=== PATIENT | female | born 1985 | race Two or more races ===

== ENCOUNTER 2019-09-15 05:22 | Inpatient (IN) | payer BC ==
[~2019-09-15] VITALS: Ht 162.6 cm; Wt 81.2 kg
[2019-09-15 05:30] VITALS: BP 135/89
--- NOTE | 2019-09-15 05:30 | NUR ---
ED Nurse Note: Patient brought in by RA from home c/o respiratory distress. Has medical hx of MS. Stated that her medication dose was increased and is causing her SOB. 99% RA, not in any distress. VSS. Friend at bedside.
[2019-09-15] MEDS ORDERED: Morphine Sulfate 4mg/ml Inj (IV USE ONLY) IVP ONE (05:45)
[2019-09-15] MEDS ORDERED: methylPREDNISolone Sod Succ 1,000 MG in NS 275 ML IVPB ONE (05:45)
--- NOTE | 2019-09-15 05:45 | NUR ---
ED Nurse Note: ERMD at bedside.
--- NOTE | 2019-09-15 05:55 | NUR ---
ED Nurse Note: IV line established. Blood specimen collected and sent to lab.
--- NOTE | 2019-09-15 05:57 | NUR ---
ED Nurse Note: Solumedrol 1000mg in NS 275ml was not given yet. Medication not available in the pyxis. aware and acknowledged.
[2019-09-15] MEDS ORDERED: Solu-MEDROL 125mg Inj IVP ONE (06:15)
--- NOTE | 2019-09-15 06:19 | Emergency Room Report ---
History of Present Illness General Chief Complaint: Upper Respiratory Illness Source: Patient Present Illness HPI 34-year-old female presents ED for evaluation. Brought in by EMS from home. States she felt short of breath momentarily tonight. States that she has history of MS. Was recently diagnosed with trigeminal neuralgia. Was initially placed on oxcarbazepine on Friday but then because she continued to have pain her dose was doubled yesterday. Was told that she could develop shortness of breath with the increased dosages. Denies any shortness of breath at this time. States she feels tingling sensation in her left arm and left leg. Typical of her MS flare. Pain is dull, 8 out of 10, nonradiating. No other aggravating relieving factors. Denies any other associated symptoms Allergies: Uncoded Allergies: NSAIDS (Allergy, Unknown, 09/15/19) Patient History Past Medical History: other - MS Past Surgical History: none Pertinent Family History: none Social History: Denies: smoking, alcohol use, drug use Now: No Immunizations: UTD Reviewed Nursing Documentation: PMH: Agreed; PSxH: Agreed Review of Systems All Other Systems: negative except mentioned in HPI Physical Exam Vital Signs Date Time Temp Pulse Resp B/P (MAP) Pulse Ox O2 Delivery O2 Flow Rate FiO2 09/15/19 05:22 98.2 70 20 135/89 (104) 97 Room Air Sp02 EP Interpretation: reviewed, normal General Appearance: no apparent distress, alert, GCS 15, non-toxic Head: normocephalic, atraumatic Eyes: bilateral eye normal inspection, bilateral eye PERRL ENT: hearing grossly normal, normal pharynx, no angioedema, normal voice Neck: full range of motion, supple/symm/no masses Respiratory: chest non-tender, lungs clear, normal breath sounds, speaking full sentences Cardiovascular #1: regular rate, rhythm, no edema Cardiovascular #2: 2+ carotid (R), 2+ carotid (L), 2+ radial (R), 2+ radial (L) , 2+ dorsalis pedis (R), 2+ dorsalis pedis (L) Gastrointestinal: normal bowel sounds, non tender, soft, non-distended, no guarding, no rebound Rectal: deferred Genitourinary: normal inspection, no CVA tenderness Musculoskeletal: back normal, normal range of motion, gait/station normal, non- tender Neurologic: alert, motor strength/tone normal, oriented x3, sensory intact, responsive, speech normal Psychiatric: judgement/insight normal, memory normal, mood/affect normal, no suicidal/homicidal ideation Reflexes: 3+ bicep (R), 3+ bicep (L), 3+ tricep (R), 3+ tricep (L), 3+ knee (R) , 3+ knee (L) Lymphatic: no adenopathy Medical Decision Making Diagnostic Impression: Primary Impression: Multiple sclerosis exacerbation Additional Impression: Dyspnea Qualified Codes: R06.00 - Dyspnea, unspecified ER Course 34-year-old female presents with episodic shortness of breath, tingling and weakness in the left arm and left leg. History of MS differentialMS exacerbation, anxiety, hypoxia Patient placed on stretcher. On sports marketing internship. After initial history and physical I ordered labs, IV fluids Labsno leukocytosis, hemoglobin/hematocrit stable, electrolytes okay Patient remains comfortable. No signs of respiratory distress at this moment. States that this feels like an MS flare. When she has had prior MS flares she usually requires hospitalization. Solu-Medrol push given. Solu-Medrol drip started. Will admit to Dr. Flores DiagnosisMS exacerbation, dyspnea Admitted to telemetry in serious condition Labs Test 09/15/19 05:47 09/15/19 07:02 White Blood Count 9.8 K/UL (4.8-10.8) Red Blood Count 4.39 M/UL (4.20-5.40) Hemoglobin 13.4 G/DL (12.0-16.0) Hematocrit 39.4 % (37.0-47.0) Mean Corpuscular Volume 90 FL (80-99) Mean Corpuscular Hemoglobin 30.5 PG (27.0-31.0) Mean Corpuscular Hemoglobin Concent 34.0 G/DL (32.0-36.0) Red Cell Distribution Width 10.6 % (11.6-14.8) Platelet Count 264 K/UL (150-450) Mean Platelet Volume 6.9 FL (6.5-10.1) Neutrophils (%) (Auto) 70.2 % (45.0-75.0) Lymphocytes (%) (Auto) 16.8 % (20.0-45.0) Monocytes (%) (Auto) 7.6 % (1.0-10.0) Eosinophils (%) (Auto) 4.6 % (0.0-3.0) Basophils (%) (Auto) 0.9 % (0.0-2.0) Sodium Level 143 MMOL/L (136-145) Potassium Level 4.1 MMOL/L (3.5-5.1) Chloride Level 107 MMOL/L (98-107) Carbon Dioxide Level 28 MMOL/L (21-32) Anion Gap 8 mmol/L (5-15) Blood Urea Nitrogen 10 mg/dL (7-18) Creatinine 0.8 MG/DL (0.55-1.30) Estimat Glomerular Filtration Rate > 60 mL/min (>60) Glucose Level 91 MG/DL (74-106) Calcium Level 8.5 MG/DL (8.5-10.1) Total Bilirubin 0.2 MG/DL (0.2-1.0) Aspartate Amino Transf (AST/SGOT) 15 U/L (15-37) Alanine Aminotransferase (ALT/SGPT) 22 U/L (12-78) Alkaline Phosphatase 62 U/L (46-116) Total Protein 7.5 G/DL (6.4-8.2) Albumin 3.6 G/DL (3.4-5.0) Globulin 3.9 g/dL Albumin/Globulin Ratio 0.9 (1.0-2.7) Lipase 105 U/L (73-393) Urine Color Pale yellow Urine Appearance Clear Urine pH 6.5 (4.5-8.0) Urine Specific [place] 1.015 (1.005-1.035) Urine Protein 1+ (NEGATIVE) Urine Glucose (UA) Negative (NEGATIVE) Urine Ketones Negative (NEGATIVE) Urine Blood 2+ (NEGATIVE) Urine Nitrite Negative (NEGATIVE) Urine Bilirubin Negative (NEGATIVE) Urine Urobilinogen Normal MG/DL (0.0-1.0) Urine Leukocyte Esterase Negative (NEGATIVE) Urine RBC 5-10 /HPF (0 - 2) Urine WBC 0-2 /HPF (0 - 2) Urine Squamous Epithelial Cells Occasional /LPF Urine Bacteria Occasional /HPF (NONE) Urine Mucus Few /LPF (NONE/OCC) Urine HCG, Qualitative Negative (NEGATIVE) Last Vital Signs Date Time Temp Pulse Resp B/P (MAP) Pulse Ox O2 Delivery O2 Flow Rate FiO2 1/15/20 05:30 70 20 Room Air 09/15/19 05:30 98.2 135/89 97 Status: improved Disposition: ADMITTED INPATIENT Condition: Serious Referrals: NON PHYSICIAN (PCP) Tomas Schwarz MD Sep 15, 2019 06:19
[2019-09-15 06:25] LABS: BASOPHILS % (AUTO) 0.9 % (0.0-2.0); EOSINOPHILS % (AUTO) 4.6 % (0.0-3.0); HEMATOCRIT 39.4 % (37.0-47.0); HEMOGLOBIN 13.4 G/DL (12.0-16.0); LYMPHOCYTES % (AUTO) 16.8 % (20.0-45.0); MEAN CORPUSCULAR VOLUME 90 FL (80-99); MONOCYTES % (AUTO) 7.6 % (1.0-10.0); NEUTROPHILS % (AUTO) 70.2 % (45.0-75.0); PLATELET COUNT 264 K/UL (150-450); RED BLOOD COUNT 4.39 M/UL (4.20-5.40); RED CELL DISTRIBUTION WIDTH 10.6 % (11.6-14.8); WHITE BLOOD COUNT 9.8 K/UL (4.8-10.8)
[2019-09-15 06:26] LABS: ANION GAP 8 mmol/L (5-15); BLOOD UREA NITROGEN 10 mg/dL (7-18); CALCIUM 8.5 MG/DL (8.5-10.1); CARBON DIOXIDE 28 MMOL/L (21-32); CHLORIDE 107 MMOL/L (98-107); CREATININE 0.8 MG/DL (0.55-1.30); POTASSIUM 4.1 MMOL/L (3.5-5.1); SODIUM 143 MMOL/L (136-145)
[2019-09-15 06:30] LABS: ALANINE AMINOTRANSFERASE 22 U/L (12-78); ALBUMIN 3.6 G/DL (3.4-5.0); ALBUMIN/GLOBULIN RATIO 0.9 (1.0-2.7); ALKALINE PHOSPHATASE 62 U/L (46-116); ASPARTATE AMINO TRANSFERASE 15 U/L (15-37); BILIRUBIN,TOTAL 0.2 MG/DL (0.2-1.0)
[2019-09-15 07:05] VITALS: BP 148/84
--- NOTE | 2019-09-15 07:15 | NUR ---
HAND-OFF: Report given to Eva HOWELL. Endorsed plan of care.
[2019-09-15 07:20] LABS: APPEARANCE,URINE CLEAR; BILIRUBIN, URINE NEGATIVE (NEGATIVE); COLOR,URINE PALE YELLOW; GLUCOSE, URINE (UA) NEGATIVE (NEGATIVE); KETONES,URINE NEGATIVE (NEGATIVE); LEUKOCYTE ESTERASE ,URINE NEGATIVE (NEGATIVE); NITRITE,URINE NEGATIVE (NEGATIVE); PH,URINE 6.5 (4.5-8.0); PROTEIN,URINE 1+ (NEGATIVE); UROBILINOGEN,URINE NORMAL MG/DL (0.0-1.0)
[2019-09-15] MEDS ORDERED: PREDNISONE50 MG ORAL (07:31)
[2019-09-15] MEDS ORDERED: BACLOFEN10 MG ORAL (07:31)
[2019-09-15] MEDS ORDERED: TRILEPTAL600 MG PO (07:31)
[2019-09-15] MEDS ORDERED: GABAPENTIN300 MG ORAL (07:33)
[2019-09-15] MEDS ORDERED: SERTRALINE HCL25 MG ORAL (07:33)
[2019-09-15] MEDS ORDERED: TRIAMCINOLONE A15 G2 TP (07:33)
[2019-09-15 08:00] VITALS: BP 130/85
--- NOTE | 2019-09-15 08:05 | NUR ---
ED Nurse Note: telephone endorsement given to DANTE Nieto for continuity of care
--- NOTE | 2019-09-15 08:15 | NUR ---
TRANSFER TO FLOOR: Patient transferred to tele as ordered, per ermd. Report given to DANTE puri. Belongings and medications given to pt and family. Family informed of transfer.
--- NOTE | 2019-09-15 08:15 | NUR ---
NURSE NOTES: pt arrived to tele via gurney. vitals signs are stable pain 8/10. oceanographer assistant on, pt has no cardiac or respiratory problems at this time. Call light within reach. Bed in lowest position and locked. Belonging sheet signed and reviewed by pt. pt has
[2019-09-15] MEDS: Solu-MEDROL 125mg Inj IVP SCH (11:27)
[2019-09-15 12:00] VITALS: BP 125/79
--- NOTE | 2019-09-15 12:43 | NUR ---
CASE MANAGEMENT: 34 Y/O FEMALE FROM HOME BIBA CC: UPPER RESPIRATORY ILLNESS SI: MULTIPLE SCLEROSIS FLARE UP 98.2 70 20 135/89 97% RA LIPASE CMP CBC UA HCG IS: SOLU-MEDROL 125 MG IV MORPHINE 4MG IV METHYLPREDNISOLONE 1000 MG IV ZOFRAN 4 MG IV NACL 1L X1 ~~~~~~ TELEMETRY 2 EAST
[2019-09-15] MEDS ORDERED: Sertraline 50mg tab ORAL SCH (14:00)
[2019-09-15] MEDS: Morphine Sulfate 2mg/ml Inj(IV/IM USE ONLY) IVP PRN ×2 (15:07→21:45)
--- NOTE | 2019-09-15 15:36 | NUR ---
NURSE NOtes: Notified doctor Mara about doctor Juan not being able to take new patients. Pt, is still under the impression that she will have an neuro consult tomorrow. 1635 [address]ified doctor Mara about pt. wants to restart Oxcarbazepine po, goal is to take 900mg BID/day. she started with 300mg a few days ago and when she raised dose to 600 yesterday she started to have respiratory problems. Doctor knows about this problem. Dr Ardon will come in and talk to pt tomorrow. As of right now he does not want pt to start this med yet.
[2019-09-15 16:00] VITALS: BP 136/82
--- NOTE | 2019-09-15 16:00 | History and Physical Report ---
DATE OF ADMISSION: 09/15/2019 HISTORY OF PRESENT ILLNESS: This is a 34-year-old female, came with pain, trigeminal neuralgia and having MS flare-up. The patient denies any fever or chills. PAST MEDICAL HISTORY: Significant for MS. MEDICATIONS: She is taking baclofen; gabapentin; Trileptal, which the patient is not taking; prednisone 50 mg; Zoloft 25 mg; triamcinolone. ALLERGIES: NKA. FAMILY HISTORY: Noncontributory. SOCIAL HISTORY: The patient lives at home by herself. Denies any smoking or drinking. REVIEW OF SYSTEMS: Generalized weakness, tired. Recently, had a flare up and had MRI done about few days ago at [facility]. The patient also progressively getting worse and weak, and a new condition called trigeminal neuralgia on the left side of the face and pain, was placed on new medication, Trileptal, but the patient is feeling a lot of side effect and not feeling well, that is why she does not take it. PHYSICAL EXAMINATION: GENERAL: This is a young female, currently in bed, looks okay, but complaining pain 10/10. VITAL SIGNS: Blood pressure is 128/72, pulse 73, respirations 16, temperature is 98.2. HEENT: AT/NC. EOMI. PERRLA. Face had tenderness, tingling, and numbness on the left side of face. NECK: Supple. No JVD. CHEST: Bilaterally clear. CARDIOVASCULAR: Regular rhythm. ABDOMEN: Soft. Positive bowel sounds. EXTREMITIES: CCE. GENITOURINARY: Refused. LABORATORY DATA: White count is 9.8, hemoglobin 13, hematocrit 39, and platelets are 264,000. Chemistry panel is unremarkable. Albumin is 3.6. Urine, WBC 5 to 10. ASSESSMENT: 1. Trigeminal neuralgia. 2. MS flare-up. 3. Chronic pain. PLAN: 1. We IV fluid, Solu-Medrol, morphine for pain. 2. Continue home medications. 3. Follow up the labs. 4. Consider neuro consult. Robin Flores M.D. DR: MAYRA JOB#: [id number] CC:
--- NOTE | 2019-09-15 16:10 | NUR ---
TRANSFER UPDATE CALLED [facility] @ T: [phone]. WAS TOLD THAT THEY ARE OVER CAPACITY AND ARE NOT ACCEPTING ANY TRANSFERS AT ALL MESSAGE LEFT FOR DR PALOMARES REGARDING INABILITY TO TRANSFER
--- NOTE | 2019-09-15 19:15 | Consultation ---
DATE OF CONSULTATION: 09/15/2019 CONSULTING PHYSICIAN: Bhupendra Choi M.D. HISTORY OF PRESENT ILLNESS: This is a 34-year-old female with a history of MS, panic attack, anxiety who has been admitted to the hospital for pain. The patient has facial pain for the past 2 days, which is severe. The patient gets panic attacks at night. Has been started recently on Zoloft and has been helping her with panic attacks. PAST PSYCHIATRIC HISTORY: Anxiety, depression. No psychiatric hospitalization. No suicide attempt. PAST MEDICAL HISTORY: MS. ALLERGIES: NSAIDs. SUBSTANCE ABUSE HISTORY: No known history of illicit drug use or alcohol. MENTAL STATUS EXAMINATION: The patient is alert and oriented times self, place, situation, and date. Pleasant and cooperative. Mood is anxious. Affect is constricted, congruent with mood. Thought process is concrete. Thought content, no suicidal or homicidal ideation. ASSESSMENT: [place] I Anxiety disorder. Panic attack. [place] II Deferred. [place] III MS. [place] IV Moderate. [place] V 50. PLAN: 1. Zoloft 25 mg p.o. at bedtime. 2. Provide the patient with reality orientation and supportive therapy. Bhupendra Choi M.D. DR: RADHA JOB#: [id number] CC:
[2019-09-15 20:00] VITALS: BP 142/71
--- NOTE | 2019-09-15 20:20 | NUR ---
NURSE NOTES: Received report from DANTE Nieto. Patient is awake lying semi-oscar's; resting comfortably. No signs of acute distress noted; complains of pain. AOx4; able to make needs known. Ambulates independently with some supervision. Checked IV site, lines, and IV rate; patent and running. No erythema, bleeding, or infiltration noted. Bed at lowest position, brakes on, siderails up x2. Call light within reach. Will continue to monitor.
--- NOTE | 2019-09-15 20:38 | NUR ---
HAND-OFF: Report given to Anjana/DANTE.
[2019-09-15] MEDS: Sertraline 50mg tab ORAL SCH (21:44)
[2019-09-16] VITALS: BP 144/73
[2019-09-16] MEDS: Morphine Sulfate 2mg/ml Inj(IV/IM USE ONLY) IVP PRN ×3 (03:51→16:47)
[2019-09-16 04:00] VITALS: BP 131/67
--- NOTE | 2019-09-16 07:30 | NUR ---
NURSE NOTES: Received pt from KAMAR HOWELL. Pt is awake and alert and eating breakfast by observation. pt is in RA, no SOB or acute respiratory distress noted. pt has intact iv access LAC 20G is running well. All needs attended, bed is locked and is in the lowest position, call light within easy reach. will continue to monitor.
--- NOTE | 2019-09-16 07:35 | NUR ---
HAND-OFF: Report given to DANTE Harris. Patient is awake lying semi-oscar's; resting comfortably. In stable condition.
[2019-09-16 08:00] VITALS: BP 145/79
[2019-09-16] MEDS: Solu-MEDROL 125mg Inj IVP SCH (08:48)
--- NOTE | 2019-09-16 10:41 | NUR ---
NURSE NOTES: contacted Md Flores about neuro-consult, Md lopez to use Md Iglesias
[2019-09-16 12:00] VITALS: BP 146/81
[2019-09-16] MEDS ORDERED: Milk of Magnesia 30ml Ud ORAL PRN (13:30)
--- NOTE | 2019-09-16 13:38 | NUR ---
NURSE NOTES: Dr PALOMARES visited pt and ordered to DC iv fluid and ordered Colace and TRILEPTAL, all orders noted and carried out. will continue to monitor.
[2019-09-16] MEDS: Docusate 250mg cap ORAL SCH ×2 (13:49→17:55)
--- NOTE | 2019-09-16 15:50 | NUR ---
CASE MANAGEMENT:REVIEW 09/17/19 SI: MS FLARE. CHRONIC PAIN TRIGEMINAL NEURALGIA 98.6 78 18 146/81 97% ON RA IS: IV SOLUMEDROL QD TRILEPTAL PO Q12 ZOLOFT PO QHS BACLOFEN PO Q6HRS NEURONTIN PO BID IV MORPHINE Q6HRS PRN : TELEMETRY STATUS Addendum: 09/17/19 at 1537 by ROBERT FOX LVN LVN ABOVE REVIEW IS FOR 09/16/19
--- NOTE | 2019-09-16 15:54 | NUR ---
TRANSFER UPDATE CALLED [facility]. patient has not been placed on the list for transfer NO BEDS AVAILABLE TODAY
[2019-09-16 16:00] VITALS: BP 139/81
--- NOTE | 2019-09-16 19:18 | NUR ---
HAND-OFF: Report given to CECILIA MIRELES. Pt is awake and stable.
[2019-09-16 20:00] VITALS: BP 139/76
--- NOTE | 2019-09-16 20:00 | NUR ---
NURSE NOTES: RECEIVED PATIENT LYING IN BED, AWAKE, ALERT/ORIENTED X4, VERBALLY RESPONSIVE. DENIES PAIN. NO SIGNS AND SYMPTOMS OF ACUTE CARDIO RESPIRATORY DISTRESS/SHORTNESS OF BREATH, NO EDEMA NOTED, SINUS RHYTHM ON TRANSFILL TECHNICIAN. IV INTACT TO LEFT AC/GAUGE 20, NO REDNESS/SWELLING NOTED TO SITE. NO COMPLAINTS OF GI DISCOMFORT, NO NAUSEA/VOMITING. SIDE RAILS UP X2 FOR MOBILITY, BED IN LOWEST POSITION FOR SAFETY, ENCOURAGED PATIENT TO UTILIZE CALL LIGHT FOR ASSISTANCE, VERBALIZED UNDERSTANDING. FREQUENT ROUNDING FOR SAFETY/NEEDS. NAD. CONTINUE WITH CURRENT PLAN OF CARE.
[2019-09-16] MEDS: Sertraline 50mg tab ORAL SCH (21:27)
[2019-09-17] VITALS: BP 140/80
[2019-09-17] MEDS: Morphine Sulfate 2mg/ml Inj(IV/IM USE ONLY) IVP PRN ×5 (00:28→21:30)
--- NOTE | 2019-09-17 03:01 | Progress Note ---
DATE: 09/16/2019 SUBJECTIVE: I saw the patient this evening on 09/16/2019. We will write a full note tomorrow. 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 We will increase the Trileptal to 750 mg p.o. b.i.d. starting tomorrow at about 9 o'clock. See if she can tolerate the increased dose. Theron Iglesias MD DR: Ester JOB#: [id number] CC:
--- NOTE | 2019-09-17 05:00 | Progress Note ---
DATE: 09/16/2019 SUBJECTIVE: This is a young female, who came in with a worsening of multiple sclerosis and back pain. The patient denies any fever or chills. The patient has been started on a steroid. The patient is physically doing better. Also complaining of headache and possibly has trigeminal neuralgia. SUBJECTIVE: VITAL SIGNS: Stable. CHEST: Bilaterally clear. CARDIOVASCULAR: Regular rhythm. ABDOMEN: Soft. EXTREMITIES: Diffuse tenderness. ASSESSMENT AND PLAN: 1. Trigeminal neuralgia. 2. Multiple sclerosis. Awaiting for Neuro consult. Added Lamictal today. Continue steroid. Continue pain medicine. Robin Flores M.D. DR: KELLY JOB#: [id number] CC:
--- NOTE | 2019-09-17 06:00 | Progress Note ---
DATE: 09/16/2019 SUBJECTIVE: The patient is doing well. Coping with her stressors. She is very pleasant. We talked about MS and her worries about future. MENTAL STATUS EXAMINATION: The patient is alert and oriented times to self, place, situation, and date. Mood is anxious. Affect is constricted, congruent with mood. Thought process is concrete. Thought content, no suicidal or homicidal ideation. Cognition is intact. Insight and judgment is fair. ASSESSMENT: Panic disorder. PLAN: 1. We will continue the Zoloft. 2. Provide the patient with reality orientation and supportive therapy. Bhupendra Choi M.D. DR: PETER JOB#: [id number] CC:
--- NOTE | 2019-09-17 06:12 | NUR ---
NURSE NOTES: PATIENT REFUSED AM BACLOFEN; RETURNED TO [facility]-
--- NOTE | 2019-09-17 07:28 | NUR ---
HAND-OFF: Report given to DANTE BANG.
--- NOTE | 2019-09-17 07:30 | NUR ---
NURSE NOTES: Received pt from CECILIA HOWELL. Pt is awake and alert and eating breakfast by observation. pt is in RA, no SOB or acute respiratory distress noted. pt has intact iv access LAC 20G is SL. All needs attended, bed is locked and is in the lowest position, call light within easy reach. will continue to monitor.
[2019-09-17 08:00] VITALS: BP 135/84
[2019-09-17] MEDS: Docusate 250mg cap ORAL SCH ×2 (08:58→17:27)
[2019-09-17] MEDS ORDERED: methylPREDNISolone Sod Succ 1,000 MG in NS 275 ML IVPB SCH (09:00)
[2019-09-17] MEDS ORDERED: OXcarbazepine 150mg tab ORAL SCH ×5 (09:00→18:00)
--- NOTE | 2019-09-17 09:16 | NUR ---
NURSE NOTES: pt refused ASA and stated she has allergy to ASA, med wasted in med room. will continue to monitor.
[2019-09-17 12:00] VITALS: BP 140/95
--- NOTE | 2019-09-17 13:00 | Consultation ---
History of Present Illness General Date patient seen: Sep 17, 2019 Chief Complaint: Present Illness Allergies: Uncoded Allergies: NSAIDS (Allergy, Unknown, 09/15/19) Medication History Scheduled Baclofen* (Baclofen*), 20 MG ORAL QID, (Reported) Gabapentin* (Gabapentin*), 300 MG ORAL DAILY, (Reported) Oxcarbazepine* (Trileptal*), 900 MG PO BID, (Reported) Prednisone* (Prednisone*), 50 MG ORAL DAILY, (Reported) Sertraline Hcl* (Sertraline Hcl*), 25 MG ORAL DAILY, (Reported) Triamcinolone Acetonide (Triamcinolone Acetonide 0.1% Oint*), 0 TP NEEDED, ( Reported) Patient History Healthcare decision maker Resuscitation status Advanced Directive on File Physical Exam Last 24 Hour Vital Signs Date Time Temp Pulse Resp B/P (MAP) Pulse Ox O2 Delivery O2 Flow Rate FiO2 09/17/19 12:00 98.4 61 19 140/95 (110) 98 09/17/19 11:42 66 09/17/19 09:00 Room Air 09/17/19 08:00 98.4 78 19 135/84 (101) 96 09/17/19 07:35 64 09/17/19 06:59 97.8 09/17/19 04:00 49 09/17/19 04:00 49 09/17/19 00:00 97.8 55 18 140/80 (100) 96 09/17/19 00:00 55 09/16/19 21:00 Room Air 09/16/19 20:00 70 09/16/19 20:00 97.0 75 18 139/76 (97) 98 09/16/19 16:00 98.1 80 19 139/81 (100) 100 09/16/19 15:32 75 Intake and Output 09/16/19 09/17/19 19:00 07:00 Intake Total 940 ml 440 ml Output Total 920 ml Balance 20 ml 440 ml Intake Oral 140 ml 440 ml IV Total 800 ml Output Urine Total 920 ml # Voids 3 2 Height (Feet): 5 Height (Inches): 4.00 Weight (Pounds): 179 Medications Current Medications Medications (Trade) Dose Ordered Sig/Homero Route PRN Reason Start Time Stop Time Status Last Admin Dose Admin Acetaminophen (Tylenol) 650 mg Q4H PRN ORAL Mild Pain/Temp > 100.5 09/15/19 10:30 10/15/19 10:29 Baclofen (Lioresal) 20 mg EVERY 6 HOURS ORAL 09/15/19 12:00 10/15/19 11:59 09/17/19 12:33 Docusate Sodium (Colace) 250 mg BID ORAL 09/16/19 13:30 10/16/19 13:29 09/17/19 08:58 Gabapentin (Neurontin) 600 mg BID ORAL 09/15/19 11:30 10/15/19 11:29 09/17/19 08:58 Magnesium Hydroxide (Mom) 30 ml BIDPRN PRN ORAL Constipation 09/16/19 13:30 10/16/19 13:29 Methylprednisolone Sodium Succinate 1000 mg/Sodium Chloride 275 ml @ 275 mls/hr DAILY IVPB 09/17/19 09:00 10/17/19 08:59 09/17/19 08:59 Morphine Sulfate (Morphine Sulfate) 1 mg Q4H PRN IVP severe pain 09/17/19 10:15 09/24/19 10:14 09/17/19 12:34 Ondansetron HCl (Zofran) 4 mg Q6H PRN IVP Nausea & Vomiting 09/15/19 07:30 10/15/19 07:29 09/15/19 07:35 Oxcarbazepine (Trileptal) 150 mg BID ORAL 09/17/19 09:25 10/17/19 09:24 09/17/19 09:28 Oxcarbazepine (Trileptal) 600 mg BID ORAL 09/17/19 09:25 10/17/19 09:24 09/17/19 09:28 Pantoprazole (Protonix) 40 mg DAILY ORAL 09/15/19 11:30 10/15/19 11:29 09/17/19 08:58 Sertraline HCl (Zoloft) 25 mg BEDTIME ORAL 09/15/19 21:00 10/15/19 20:59 09/16/19 21:27 Assessment/Plan Assessment/Plan: (1) Trigeminal Neuralgia (2) Multiple Sclerosis (3) Neuropathic pain seen dictated Zach John Sep 17, 2019 13:00
--- NOTE | 2019-09-17 14:55 | NUR ---
*-* INSURANCE *-* ALL CLINICALS AND REVIEWS HAVE BEEN FAXED TO: REF# [id number] # [phone] FAX#[phone] REVIEWS/CLINICALS
--- NOTE | 2019-09-17 15:37 | NUR ---
CASE MANAGEMENT:REVIEW 09/17/19 SI: MS FLARE. CHRONIC PAIN TRIGEMINAL NEURALGIA 98.4 61 19 140/95 98% ON RA NO LABS FOR TODAY IS: IV SOLUMEDROL QD TRILEPTAL PO Q12 ZOLOFT PO QHS BACLOFEN PO Q6HRS NEURONTIN PO BID IV MORPHINE Q4HRS PRN : TELEMETRY STATUS PLAN: TRILEPTAL DOSE INCREASED BY NEUROLOGIST DOWNGRADE TO MED/SURG SPOKE WITH NEHAL AT [facility]....PATIENT IS NOT ON THE LIST FOR TRANSFER
[2019-09-17 16:00] VITALS: BP 133/74
--- NOTE | 2019-09-17 16:30 | Consultation ---
DATE OF CONSULTATION: 09/17/2019 PAIN MANAGEMENT CONSULTATION CONSULTING PHYSICIAN: Adriana Bryant M.D. REFERRING PHYSICIAN: Berry Flores M.D. PHYSICIAN CORPORATE PLANNING MANAGER: Preet Combs CHIEF COMPLAINT: Left-sided facial pain. HISTORY OF PRESENT ILLNESS: This is a 34-year-old female, who is being seen on the telemetry floor of [facility] for initial pain management consultation. The patient was admitted under the care of Dr. Flores due to multiple sclerosis flare up and having left-sided facial pain for the past week, it is a constant acute pain, rating it as 6/10, describing the pain as a sharp, stabbing pain with tingling and burning, increased with brushing her teeth and eating and moving per mouth and touch and it reduces with heat and medication, also complaining of left-sided body pain due to multiple sclerosis, takes Neurontin and baclofen as an outpatient. Recently she had gone to [facility] for MRI of the brain, cervical, and the facial area, found to have a blood vessel sitting on the nerve and need to have surgery with neurosurgeon due to it causing trigeminal neuralgia. She had been seen by neurologist here and started on Trileptal and morphine 1 mg IV every 4 hours as needed for severe pain which brought her pain from 8 to 5/10. She is comfortable and is waiting to be discharged as per manager data. We were consulted so the patient would have adequate pain control. She reports that she has been taking Tylenol No.3, with no relief as an outpatient. PAST MEDICAL HISTORY: Multiple sclerosis. PAST SURGICAL HISTORY: [place] tooth removal and egg retrieval. SOCIAL HISTORY: She is a social drinker of alcohol. Denies smoking tobacco and IV drug abuse. ALLERGIES: NSAIDs. MEDICATIONS: control, Provigil, Neurontin, baclofen. REVIEW OF SYSTEMS: Denies rash, fever, chills, sweating, dizziness, drowsiness, blurred vision, sore throat, or change in weight. No shortness of breath or chest pain. No nausea, vomiting, diarrhea, or blood in the stool or urine. No dysuria. She is complaining of facial pain. PHYSICAL EXAMINATION: GENERAL: Alert, awake, and oriented. VITAL SIGNS: Blood pressure 140/97, heart rate 61, oxygen saturation 98%, respiratory rate 19, temperature 98.5 degrees Fahrenheit. HEENT: PERRLA. NECK: Range of motion is full in all directions. No tenderness to paracervical muscles. No adenopathy. LUNGS: Decreased breath sounds bilaterally. HEART: Regular. ABDOMEN: Soft and nontender. BACK: Range of motion is full in flexion and extension. EXTREMITIES: Upper and lower extremity range of motion is full in all direction. No cyanosis. No clubbing. Sensory is intact. Reflexes are not obtainable. No adenopathy. ASSESSMENT AND PLAN: This is a 34-year-old female with trigeminal neuralgia, multiple sclerosis, neuropathic pain. The patient will be continued on morphine, Neurontin, baclofen, and Trileptal. We will write a prescription for [place] 5/325 one tablet every six to eight hours 10 tablets and Narcan nasal spray one spray as needed intranasally opioid overdose which was written for patient in anticipation for discharge. The patient was advised to follow up with primary care physician upon discharge. The patient was discussed with Dr. Bryant and Dr. Bryant concurred. We will follow up with the patient. Thank you very much for the courtesy of this consultation. Adriana Bryant M.D. YELENA Combs DR: Cameron JOB#: [id number] CC: MARCELLO
--- NOTE | 2019-09-17 19:28 | NUR ---
HAND-OFF: Report given to RENITA HOWELL. Pt is awake A&O x4 and stable.
[2019-09-17 20:00] VITALS: BP 132/78
--- NOTE | 2019-09-17 20:00 | NUR ---
NURSE NOTES: RECEIVED PATIENT LYING IN BED, AWAKE, ALERT/ORIENTED X4, VERBALLY RESPONSIVE, FRIENDS/FAMILY AT BEDSIDE. NO SIGNS AND SYMPTOMS OF ACUTE CARDIO RESPIRATORY DISTRESS/SHORTNESS OF BREATH, DENIES CHEST PAIN, NO PERIPHERAL EDEMA NOTED, SINUS RHYTHM ON MODULAR SET CREW MEMBER. NO COMPLAINTS OF GI DISCOMFORT, NO NAUSEA/VOMITING. SIDE RAILS UP X2 FOR MOBILITY, BED IN LOWEST POSITION FOR SAFETY, CALL LIGHT WITHIN REACH, NO ACUTE DISTRESS. HOURLY ROUNDING FOR SAFETY/NEEDS. NAD.
[2019-09-17] MEDS: OXcarbazepine 150mg tab ORAL SCH (21:00)
[2019-09-17] MEDS: Sertraline 50mg tab ORAL SCH (21:10)
[2019-09-18 04:00] VITALS: BP 140/89
[2019-09-18] MEDS: Morphine Sulfate 2mg/ml Inj(IV/IM USE ONLY) IVP PRN ×3 (04:05→12:37)
--- NOTE | 2019-09-18 06:51 | NUR ---
NURSE NOTES: RESTED WELL, NO SIGNIFICANT CHANGE OF CONDITION NOTED THROUGHOUT THE NIGHT. SAFETY MAINTAINED. NAD.
--- NOTE | 2019-09-18 07:25 | NUR ---
NURSE NOTES: Received report from Arlene MIRELES. Patient in bed alert and orientedx4. No c/o pain. No acute distress noted. Pt's friend at the bedside. Pt asks if she can discharge home today. Will notify the MD for discharge orders. IV site in LAC 20G SL patent and asymptomatic. Will continue to plan of care.
--- NOTE | 2019-09-18 07:30 | NUR ---
HAND-OFF: Report given to DANTE CHENG.
[2019-09-18 08:00] VITALS: BP 143/88
--- NOTE | 2019-09-18 08:30 | NUR ---
NURSE NOTES: Dr. Flores paged for discharge orders.
[2019-09-18] MEDS ORDERED: methylPREDNISolone Sod Succ 1,000 MG in NS 275 ML IVPB SCH (09:00)
[2019-09-18] MEDS: Docusate 250mg cap ORAL SCH (09:00)
[2019-09-18] MEDS: OXcarbazepine 150mg tab ORAL SCH (09:00)
[2019-09-18] MEDS ORDERED: DiphenhydrAMINE 50mg/ml Inj IVP STA (10:43)
[2019-09-18] MEDS ORDERED: PREDNISONE20 MG ORAL ×2 (11:03→11:04)
[2019-09-18] MEDS ORDERED: PROTONIX40 MG ORAL (11:05)
[2019-09-18] MEDS ORDERED: TRILEPTAL600 MG PO (11:06)
[2019-09-18] MEDS ORDERED: NORCO 5-325 TA1 EACH ORAL (11:07)
[2019-09-18] MEDS ORDERED: NARCAN4 MG NS (11:07)
--- NOTE | 2019-09-18 13:57 | NUR ---
Discharge: Patient is being discharged from medical care. Awake, alert and oriented x4. After care instructions, including referral to community resources were given. Patient verbalized understanding of After care instructions; at this time patient does not request equipment or placement. Patient signed patient consent in the medical record for patient destination upon discharge. All medical devices such as IV and ID band were removed. She was discharged home with her friend and two written prescriptions. Patient ambulated out with all personal belongings with steady gait.
--- NOTE | 2019-09-19 02:00 | Discharge Summary ---
DATE OF ADMISSION: 09/15/2019 DATE OF DISCHARGE: 09/18/2019 HOSPITAL COURSE: This is a 34-year-old female who came with a flare-up of multiple sclerosis and pain allover the body. During this hospital course, the patient had Neurology consult and was given IV Solu-Medrol, IV pain medication, and Pain Management as well as Neurology consult was obtained. The patient was started on Lamictal. Continue Keppra. Continue rest of the medication. Also, given pain medication, Benadryl, and Solu-Medrol. The patient is physically doing better. PHYSICAL EXAMINATION: VITAL SIGNS: Blood pressure 143/88, pulse 72, respirations 18, and temperature 97. HEENT: NAD. CHEST: Bilaterally clear. CARDIOVASCULAR: Regular rhythm. ABDOMEN: Soft. EXTREMITIES: No CCE. NEUROLOGICAL: No focal deficits. GENITOURINARY: Deferred. DISCHARGE DIAGNOSES: 1. Flare-up of MS. 2. Chronic pain. PLAN: The patient was given a prescription of prednisone, also Trileptal and stool softener and was recommended to follow up neurologist as an outpatient. Robin Flores M.D. DR: Andreina JOB#: [id number] CC:
--- NOTE | 2019-09-20 14:11 | NUR ---
*-* INSURANCE *-* DISCHARGE SUMMARY HAS BEEN FAXED TO: REF# [id number] # [phone] FAX#[phone]/ [phone] REVIEWS/CLINICALS
--- NOTE | 2019-09-20 14:15 | Consultation ---
DATE OF CONSULTATION: 09/16/2019 NEUROLOGIC CONSULTATION CONSULTING PHYSICIAN: Theron Iglesias M.D. 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 The patient was diagnosed with MS about a year and a half ago. The patient had MRI scans of her brain and spinal cord, which revealed multiple lesions, at least 1 enhancing lesion. She also had a lumbar puncture which was "consistent with multiple sclerosis" according to the patient, although she does not know the results. It sounds like she might have had an OCT and visual evoked responses and somatosensory evoked responses. The patient was placed on Ocrevus initially in October 2017. The patient had another dose after the first and then was scheduled to have another one on 11/28/2018. Recently, the patient has had increasing fatigue and muscle weakness in the left side and numbness with difficulty actually walking, getting to the bathroom. The patient does see Dr. Gonsalez at [facility], the multiple sclerosis fellow. She has been placed on gabapentin 600 mg b.i.d., baclofen 20 mg every 6 hours. She was initially given some Solu-Medrol 125 mg, but then changed to 1000 mg last night by myself. I increased the Trileptal dose to 750 b.i.d., last evening. The patient's facial pain is in the first and second division of the fifth cranial nerve and is severe, although somewhat reduced by the medications. The patient apparently had new problems with shortness of breath and an apneic spell lasting about 30 seconds when the Trileptal was increased to 900 mg twice a day. This was then reduced down to 600 mg. The patient complains of the Lhermitte's phenomenon. She has gait problems. She has had episodes of vertigo in the past. No optic neuritis as far as I can tell. She also has been in contact with Dr. Cartagena, Pain Management at the [facility] in [place]. The patient on admission had a essentially normal CBC with normal platelet counts, normal white count. Chemistries on 09/15/2019 were essentially normal except for decreased albumin-globulin ratio. The urinalysis was fairly unremarkable, some 5 to 10 rbc's per high-power field with occasional bacteria. No imaging studies were done. The patient on Friday had 1000 mg of IV Solu-Medrol given. The EKG on admission suggested "anterior infarct" age indeterminate, T-wave abnormality, consider inferior ischemia and a normal sinus rhythm. The patient had a history of a heart murmur and endometriosis in the past. The patient had been worked up for sarcoid. She has been worked up for Sjogren's syndrome, which was negative and denies any history of SLE or other autoimmune diseases. There is no family history of multiple sclerosis or other neurologic diseases. PAST MEDICAL HISTORY/PAST MEDICAL ILLNESSES: 1. Heart murmur, probably benign, but the EKG is slightly abnormal. 2. Endometriosis. ALLERGIES: Allergic to NSAIDs and aspirin. HABITS: She rarely drinks. Does not smoke or use illegal drugs. SOCIAL HISTORY: She is unmarried with no children. She is an outside event sales specialist. FAMILY HISTORY: Father has heart disease. Her mother and siblings are in good health. SURGERIES: She had wisdom teeth removed and retrieval in 2012. MEDICATIONS: She is on low estrogen control pills as well as above and Zoloft 25 mg. REVIEW OF SYSTEMS: Her appetite is good. Her weight is stable. She is 179 pounds and 5 feet 4 inches tall. PHYSICAL EXAMINATION: GENERAL: She is a well-developed, overweight obese woman, in no acute distress at this time. VITAL SIGNS: Blood pressure is 139/76, pulse is 75 and regular, temperature is 97 degrees, respiratory rate is 18. HEENT: Examination of her head is normal. She does complain of pain down the back with flexion of the head. NECK: There is no tenderness. LUNGS: Clear to auscultation. CARDIOVASCULAR: She has grade 3/6 crescendo-decrescendo murmur at the left sternal border increased with respiration, decreased with Valsalva maneuver spread to the right second intercostal space. ABDOMEN: Obese. muscle spasm. EXTREMITIES: Normal. NEUROLOGIC: MENTAL STATUS: Judgment appropriate. Memory, past memory is appropriate to birthday. Immediate recall, 3/3 objects. Recent recall 2/3 objects at 5 minutes with prompting. Intellect, similarities are abstract, i.e., watch and ruler are forms of measuring. Orientation, time, she knew it is 09/16/2019. . Spoken speech without paraphasias. Comprehension was intact. There is no right left confusion or finger agnosia. CRANIAL NERVE EXAMINATION: CRANIAL NERVE II: Visual givens intact to confrontation. Fundi were benign. Visual acuity not tested. There was no afferent pupillary defect. CRANIAL NERVES III, IV, AND : Extraocular motility is full. Pupils are 6 mm intact. CRANIAL NERVE V: Facial and corneal sensation are intact to fine touch. Pterygoid strength is 5/5. CRANIAL NERVE VII: Facial strength is 5/5 bilaterally. CRANIAL NERVE VIII: Auditory acuity was intact bilaterally to whisper. CRANIAL NERVES IX AND X: Gag is intact bilaterally. CRANIAL NERVE XI: Sternocleidomastoid strength is 5/5. CRANIAL NERVE XII: Tongue protrudes in the midline without fasciculations or atrophy. MUSCLE EXAMINATION: Muscle bulk and tone are normal. Strength 5/5 proximally and distally in the right upper and right lower extremities and the left side is 4+ to 5-/5. REFLEXES: +2 in the right upper extremities, +1 , downgoing toes when testing for Babinski response. COORDINATION: Qxccaw-[id number] and aejf-uk-[id number] testing were intact . Rapid alternating movements were normal. pinprick, fine touch, proprioception were intact. Vibration appears to be intact in the lower extremities. IMPRESSION: The patient has . The patient apparently has trigeminal neuralgia due to an aberrant artery and not due to multiple sclerosis plaque at the junction of the cranial nerve V and I would like to do an MRI scan of the brain. Continue to increase the Trileptal [facility]. PLAN: 1. Continue Solu-Medrol for 2 more days. 2. Continue the Protonix and her other medications. 3. Review of the MRI scan of her brain from [facility] and try to get her transferred to [facility]. Thank you for this interesting case. Theron MD Harris DR: MAYRA JOB#: [id number] CC:
== END 2019-09-18 13:57 | disposition home or self-care (01) | DRG 60 ==
LOC: EDBD 05:22 → EMR 05:51 → 2E 06:11 → EDBEDREQ 06:39 → 2E 19:29
DX: G35 Multiple sclerosis (principal); G50.0 Trigeminal neuralgia; F41.0 Panic disorder [episodic paroxysmal anxiety]; F41.9 Anxiety disorder, unspecified; Z88.6 Allergy status to analgesic agent; G89.29 Other chronic pain
CPT/HCPCS: 36415; 80053; 81003; 81025; 83690; 85025; 93005; 96365; 96375; 99285; J2405; J7030